=== PATIENT | female | born 1975 ===

== ENCOUNTER → 2018-03-22 | Outpatient (REF) | LOC: ZLAB.WCH 11:02 | DX: Z01.89 Encounter for other specified special examinations (principal) ==

== ENCOUNTER → 2018-03-23 | Outpatient (REF) ==
[2018-03-23 09:29] LABS: THYROID STIMULATING HORMONE 0.961 uIU/mL (0.465-4.680)
== END ==
LOC: ZLAB.WCH 08:33
PROVIDERS: Physician Assistant
DX: Z01.89 Encounter for other specified special examinations (principal)